=== PATIENT | female | born 1965 | race Caucasian/White ===

== ENCOUNTER → 2016-05-30 13:52 | Day surgery (SDC) | payer OTHER ==
[~2016-05-30 13:52] MED LIST: Lidocain 1% EPI 1:100,000 * 30 ML MDV ONE; Sodium Bicarbonate 8.4% SYR* 10 ML SYRINGE ONE
[2016-05-30 16:31] VITALS: BP 149/89
--- NOTE | 2016-06-01 21:27 | OP ---
DATE OF OPERATION: 05/30/16 - [facility] DATE OF : 61 SURGEON: Macario Humphrey MD ENTERPRISE SYSTEMS ENGINEER: None. ANESTHESIOLOGIST: None. ANESTHESIA: Local only with 1% lidocaine with epinephrine. PRE-OP DIAGNOSES: 1. Right middle trigger finger. 2. Right ring trigger finger. POST-OP DIAGNOSES: 1. Right middle trigger finger. 2. Right ring trigger finger. OPERATIVE PROCEDURE: 1. Right middle finger A1 praneeth release. 2. Right ring finger [id number] release. INDICATIONS: Aaron is a 50-year-old woman. I had injected the trigger fingers before. She got some pain relief, but there is still clicking and catching. We talked about the risks and benefits and she elected to proceeded with surgery. ESTIMATED BLOOD LOSS: 5 mL. COMPLICATIONS: None. FINDINGS: As expected. DESCRIPTION OF PROCEDURE: Aaron was seen in the preoperative holding area. The correct side and site were marked. We had a time-out and then I infiltrated the operative areas with 1% lidocaine with epinephrine. We waited about 20 minutes and came back to the operating room where the arm was prepped and draped in the usual fashion. We had another time-out. I then went ahead and made a longitudinal incision over the right middle finger. Dissection was carried down with the tenotomy scissors bluntly to expose the tendon sheath. With a couple of Ragnell retractors in place, I went ahead and longitudinally incised the A1 praneeth with a 15 blade. The release was completed proximally and distally with the tenotomy scissors. I then went ahead and irrigated this wound. I then went ahead and made a longitudinal incision over the right ring finger A1 praneeth area. Dissection was again carried down bluntly with the tenotomy scissors. Again with a couple of Ragnell retractors in place, I longitudinally incised the A1 praneeth with the 15 blade. I extended the release distally and proximally with the tenotomy scissors. I then let down the drapes and had Aaron do everything she could to try to get the fingers to catch and trigger. She could not do it. I then went ahead and irrigated both the wounds again and closed both the wounds with some 5-0 nylon suture. Wounds were dressed with Xeroform, 4x4's, and an Raf bandage. She was then taken to the recovery room. [id number]/[facility] #: [id number] MTDD
== END | disposition home or self-care (01) ==
LOC: OREAST 13:52
PROVIDERS: ATTEND Orthopaedic Surgery Hand Surgery
DX: M65.331 Trigger finger, right middle finger (principal); M65.341 Trigger finger, right ring finger; F17.210 Nicotine dependence, cigarettes, uncomplicated

== ENCOUNTER 2016-07-04 09:31 | Day surgery (SDC) | payer OTHER ==
[2016-07-04] MEDS ORDERED: Lidocain 1% EPI 1:100,000 * 30 ML MDV ONE (10:58)
[2016-07-04 12:09] VITALS: BP 139/83
--- NOTE | 2016-07-05 11:48 | OP ---
DATE OF OPERATION: 07/04/16 - [facility] DATE OF : 61 SURGEON: Macario Humphrey MD. ASSISTANTS: 1. KAMILLE Poe 2. KAMILLE Rachel student. ANESTHESIOLOGIST: None. ANESTHESIA: Local only with 1% lidocaine with epinephrine and bicarbonate. PRE-OP DIAGNOSES: 1. Right middle trigger finger. 2. Right ring trigger finger. POST-OP DIAGNOSES: 1. Right middle trigger finger. 2. Right ring trigger finger. OPERATIVE PROCEDURES: 1. Release of right middle finger A1 praneeth. 2. Release of right ring finger A1 praneeth. INDICATIONS: Aaron is a 50-year-old female. I had released the left middle and ring trigger fingers previously. She has done well with that. She wanted to have the right middle and ring trigger fingers released. We talked about risks and benefits. She elected to proceed. EBL: 5 mL. COMPLICATIONS: None. FINDINGS: As expected. DESCRIPTION OF PROCEDURE: Aaron was seen in the preoperative holding area and the correct site, side, and procedures were identified. We had a time-out and I anesthetized the operative area with 1% lidocaine with epinephrine and bicarbonate. We then came back to the operating room and the arm was prepped and draped in the usual fashion, and a formal time-out was performed. I began by making a 1 cm longitudinal incision over the right middle finger A1 praneeth. Dissection was carried down bluntly with the tenotomy scissors to expose the tendon sheath. I then longitudinally split the A1 praneeth with the 15 blade. The release was extended proximally and distally with the tenotomy scissors. Once I was satisfied that the release was complete, I irrigated the wound and we turned our attention to the ring finger. I again made a 1 cm longitudinal incision over the right ring finger A1 praneeth. Dissection was carried down bluntly with tenotomy scissors. With the tendon sheath clearly visualized, I again used the 15 blade to make a longitudinal split in the A1 praneeth. The release was extended proximally and distally with the tenotomy scissors under direct visualization. Once I was satisfied with the release, I irrigated both wounds again and both wounds were then closed with some 4-0 nylon suture. Wounds were dressed with Xeroform, 4 x 4's, some 2- inch Webril, and an Raf wrap. She was then taken to recovery room in stable condition. [id number]/[facility] #: [id number] WARREN
--- NOTE | 2016-08-01 01:28 | OP ---
REDICTATED OPERATIVE REPORT DATE OF OPERATION: 07/04/16 - [facility] DATE OF : 61 SURGEON: Macario Humphrey MD NURSING DEPARTMENT CHAIRPERSON: 1. KAMILLE Poe 2. KAMILLE Rachel student. ANESTHESIOLOGIST: None. ANESTHESIA: Local only with 1% lidocaine with epinephrine and bicarbonate. PRE-OP DIAGNOSES: 1. Left middle trigger finger. 2. Left ring trigger finger. POST-OP DIAGNOSES: 1. Left middle trigger finger. 2. Left ring trigger finger. OPERATIVE PROCEDURE: 1. Release of left middle finger A1 praneeth. 2. Release of left ring finger A1 praneeth. INDICATIONS: Aaron is a 50-year-old female. I had previously released the right middle and ring trigger fingers. She has done well with that. We had talked about risks and benefits. She elected to proceed now with the left middle and ring trigger finger releases. EBL: 5 mL. COMPLICATIONS: None. FINDINGS: As expected. DESCRIPTION OF PROCEDURE: Aaron was seen in the preoperative holding area and the correct site, side, and procedure were identified. We had a time-out and then I anesthetized the operative area with 1% lidocaine with epinephrine and bicarbonate. We came back to the operating room and the arm was prepped and draped in the usual fashion and a formal time-out was performed. I began by making 1 cm longitudinal incision over the left middle finger A1 praneeth. Dissection was carried down bluntly with the tenotomy scissors to expose the tendon sheath. I then longitudinally split the A1 praneeth with a 15 blade. The release was extended proximally and distally with the tenotomy scissors. Once I was satisfied that the release was complete, I irrigated the wound and we turned our attention to the ring finger. I again made a 1 cm longitudinal incision over the left ring finger A1 praneeth. Dissection was carried down bluntly with the tenotomy scissors with the tendon sheath clearly visualized. I again used a 15 blade to make a longitudinal split in the A1 praneeth. The release was extended proximally and distally with the tenotomy scissors under direct visualization. Once I was satisfied with the release, I irrigated both wounds. Both wounds were then closed with some 4- 0 nylon suture. I did have her flex and extend the fingers multiple times to make sure there was no catching. Wounds were dressed with Xeroform, 4x4, some 2 -inch sterile Webril, and an Raf wrap. She was then taken to the recovery room in stable condition. [id number]/[facility] #: [id number] WARREN
== END 2016-07-04 12:05 | disposition home or self-care (01) ==
LOC: OREAST 09:31
PROVIDERS: ATTEND Orthopaedic Surgery Hand Surgery
DX: M65.331 Trigger finger, right middle finger (principal); M65.341 Trigger finger, right ring finger; F17.210 Nicotine dependence, cigarettes, uncomplicated

== ENCOUNTER 2017-11-08 08:24 | Emergency (ER) | payer OTHER ==
[2017-11-08 08:44] VITALS: BP 191/104
--- NOTE | 2017-11-08 09:01 | UC ---
Skin Complaint HPI - HPI Summary HPI Summary: per lacing operator 'c/o red, crusted areas that are going across R upper abd area since Friday. States area started to hurt yesterday." -She is here with her niece Meagan. -A glucose a rash and she thinks that shingles. Symptoms started 6 days ago. It is across the right upper abdomen. Blisters. Painful and burning. -She has a diagnosis of hypertension. She was discharged from her primary care physician over one year ago and has been out of her meds since then. Her blood pressure has continued to be high throughout the year. She denies chest pains, shortness of breath, palpitations slurred speech or other strokelike symptoms. She continues to smoke and states that she is not willing to quit. She is not ready. She is willing to find a new primary care doctor and excepts thirty-day prescriptions of her meds today. She denies history of kidney disease or diabetes. - History of Current Complaint Chief Complaint: UCSkin Time Seen by Provider: 11/08/17 08:57 Stated Complaint: SKIN COMPLAINT Pain Intensity: 2 - Allergy/Home Medications Allergies/Adverse Reactions: Allergies Allergy/AdvReac Type Severity Reaction Status Date / Time No Known Allergies Allergy Verified 11/08/17 08:34 Review of Systems Constitutional: Negative Skin: Rash Eyes: Negative ENT: Negative Respiratory: Negative Cardiovascular: Negative Gastrointestinal: Negative Genitourinary: Negative Motor: Negative Neurovascular: Negative Musculoskeletal: Negative Neurological: Negative Psychological: Negative Is Patient Immunocompromised?: No All Other Systems Reviewed And Are Negative: Yes PMH/Surg Hx/FS Hx/Imm Hx Previously Healthy: Yes Cardiovascular History: Hypertension - Surgical History Surgical History: Yes Surgery Procedure, Year, and Place: both hands. R wrist - Family History Known Family History: Positive: Cardiac Disease, Diabetes - Social History Alcohol Use: Daily Alcohol Amount: 6-8 during weekdays, weekends- 12 or more Substance Use Type: None Substance Use Comment - Amount & Last Used: 2-4 pots of coffee daily Smoking Status (MU): Heavy Every Day Tobacco Smoker Type: Cigarettes Amount Used/How Often: 1/2- 1 1/2 PPD Length of Time of Smoking/Using Tobacco: since age 11 Have You Smoked in the Last Year: Yes Household Exposure Type: Cigarettes Physical Exam Triage Information Reviewed: Yes Appearance: Well-Appearing, No Pain Distress, Well-Nourished, Other: - Significant smell of cigarette smoke upon entering the room. Vital Signs: Initial Vital Signs Temp 98.7 F 11/08/17 08:36 Pulse 89 11/08/17 08:36 Resp 16 11/08/17 08:36 BP 191/104 11/08/17 08:36 Pulse Ox 99 11/08/17 08:36 Vital Signs Reviewed: Yes Eye Exam: Normal ENT Exam: Normal ENT: Positive: Pharynx normal, TMs normal Neck exam: Normal Neck: Positive: Supple, Nontender, No Lymphadenopathy Respiratory Exam: Normal Respiratory: Positive: Chest non-tender, No respiratory distress, No accessory muscle use, Decreased breath sounds Cardiovascular: Positive: RRR, No Murmur, Pulses Normal Abdomen Description: Positive: Nontender, Soft, Other: - Right upper quadrant with rash extending from midline around to right flank. Nonblanching Erythematous based lesions with superimposed vesicles. Vesicles are fluid filled. Not tried. No streaks or discharge. Musculoskeletal Exam: Normal Neurological Exam: Normal Psychological Exam: Normal Skin Exam: Normal Course/Dx - Course Course Of Treatment: Restart prescriptions for Coreg 12.5 mg daily, losartan 25 mg daily and amlodipine 10 mg daily. Irrigate prescriptions with no refills given for all of them. She strongly advised to call with the PCPs on the list we gave her immediately on Friday to call for follow-up appointment. We extensively discussed risks of uncontrolled hypertension and smoking. - Unfortunately she is past the time frame for treatment for her zoster. 7 days into symptoms, the antivirals will be ineffective. Tylenol and ibuprofen for pain. Discussed not to allow contact with anybody who has not had chickenpox or Varivax. - Differential Diagnoses - Skin Complaint Differential Diagnoses: Poison Elsy, Varicella Zoster - Diagnoses Provider Diagnoses: Zoster right upper quadrant, uncontrolled hypertension, tobacco use disorder Discharge - Sign-Out/Discharge Documenting (check all that apply): Discharge/Admit/Transfer - Discharge Plan Condition: Stable Disposition: HOME Prescriptions: Amlodipine Besylate [Norvasc-] 10 mg PO DAILY 30 Days #30 tablet Carvedilol [Coreg] 12.5 mg PO QAM 30 Days #30 tablet Losartan TAB* [Cozaar TAB*] 25 mg PO DAILY 30 Days #30 tab Patient Education Materials: Shingles (ED) Referrals: No Primary Care Phys,NOPCP [Primary Care Provider] - Additional Instructions: -Make sure to call one of the primary care providers that we listed for you on Friday for follow up. I have given you 30 day prescriptions for all 3 of your blood pressure meds. Uncontrolled blood pressure significantly increases her risk of heart attack, stroke, kidney disease, vision loss amongst others. Smoking also triples those risks. -Unfortunately, you were out of the timeframe for medications for the shingles. They would not be effective at this point to help slow down the disease process. Taking Tylenol or ibuprofen for pain can be helpful. If you get shingles again, he should come in within the first 48 hours of the first sign of shingles. - Billing Disposition and Condition Condition: STABLE Disposition: Home
== END 2017-11-08 09:28 | disposition home or self-care (01) ==
LOC: UCCORT 08:24
DX: B02.9 Zoster without complications (principal); I10 Essential (primary) hypertension; F17.210 Nicotine dependence, cigarettes, uncomplicated
CPT/HCPCS: 99212; G0463

== ENCOUNTER → 2018-02-17 11:57 | Emergency (ER) | payer SELFPAY ==
[~2018-02-17 11:57] MED LIST changes: -Lidocain 1% EPI 1:100,000 * 30 ML MDV ONE; +PPD test dose* 5 TU/0.1 ML TEST (*USE PPD ORDER SET*) ONE; -Sodium Bicarbonate 8.4% SYR* 10 ML SYRINGE ONE
--- NOTE | 2018-02-18 16:29 | UC ---
Discharge - Sign-Out/Discharge Documenting (check all that apply): Post-Discharge Follow Up All imaging exams completed and their final reports reviewed: No Studies - Discharge Plan Disposition: HOME Referrals: No Primary Care Phys,NOPCP [Primary Care Provider] - - Billing Disposition and Condition Disposition: Home
== END | disposition home or self-care (01) ==
LOC: OHCORT 11:57
DX: Z02.1 Encounter for pre-employment examination (principal)